=== PATIENT | male | born 1985 | race African-American/Black ===

== ENCOUNTER 2017-07-25 20:44 | Emergency (ER) | payer SELFPAY | END 2017-07-25 22:12 | disposition home or self-care (01) | LOC: ERS 20:44 | DX: A64 Unspecified sexually transmitted disease (principal); J45.909 Unspecified asthma, uncomplicated | CPT/HCPCS: 99281 ==

== ENCOUNTER 2018-09-11 07:05 | Emergency (ER) | payer BC, SELFPAY | END 2018-09-11 08:31 | disposition home or self-care (01) | LOC: ERS 07:05 | DX: J45.901 Unspecified asthma with (acute) exacerbation (principal); J06.9 Acute upper respiratory infection, unspecified | CPT/HCPCS: 87804; 94640 ==

== ENCOUNTER 2024-07-11 23:31 | Inpatient (IN) | payer OTHER ==
[2024-07-12] MEDS ORDERED: Acetaminophen 325 MG TAB PO PRN (01:56)
[2024-07-12] MEDS ORDERED: Acetaminophen 650 MG Suppository PR PRN (01:56)
[2024-07-12] MEDS ORDERED: Ondansetron PF 4 MG/2 ML Vial IVP PRN (01:56)
[2024-07-12] MEDS ORDERED: Calcium Carbonate 500 MG ChewTAB PO PRN (01:56)
[2024-07-12] MEDS ORDERED: Ondansetron ODT 4 MG TAB PO PRN (01:56)
[2024-07-12] MEDS: Carvedilol 25 MG TAB PO SCH ×2 (03:45→08:27)
[2024-07-12 03:58] LABS: #Basophils 0.06 10x3/uL (0.0-0.2); %Basophils 0.5 % (0.0-1.0); %Eosinophils 1.6 % (0.0-10.0); %Lymphocytes 29.3 % (21.0-51.0); %Monocytes 6.5 % (0.0-10.0); %Neutrophils 61.9 % (42.0-75.0); Hematocrit 40.9 % (42.0-52.0); Hemoglobin 12.9 g/dL (14.0-18.0); Mean Corpuscular HGB CONC 31.5 g/dL (32.0-36.0); Mean Corpuscular Volume 82.5 fL (78.0-98.0); Platelet Count 157 10x3/uL (130-400); RBC Distribution Width 14.2 % (11.5-14.5); Red Blood Cell (RBC) Count 4.96 mill/uL (4.70-6.10)
[2024-07-12 04:07] LABS: Amphetamine Not Detected (NotDetected); Barbiturates Screen Not Detected (NotDetected); Benzodiazepine Screen Not Detected (NotDetected); Cocaine Metabolite Screen Not Detected (NotDetected); Methadone Not Detected (NotDetected); Methamphetamine Not Detected (NotDetected); Opiate Screen Not Detected (NotDetected); Oxycodone Screen Not Detected (NotDetected); Phencyclidine (PCP) Not Detected (NotDetected); THC/Cannabinoid Screen Not Detected (NotDetected); Tricyclic Screen Not Detected (NotDetected)
[2024-07-12 04:30] LABS: Troponin I 0.062 ng/mL (< 0.028)
[2024-07-12 04:37] LABS: ALT (SGPT) 28 U/L (Less than 45); AST (SGOT) 27 U/L (11-34); Albumin 3.6 g/dL (3.1-4.5); Alkaline Phosphatase 61 U/L (40-110); Anion Gap 16 mmol/L (10-20); BUN (Urea Nitrogen) 13 mg/dL (8.9-20.6); Bilirubin, Total 0.4 mg/dL (0.3-1.2); Calc. Creatinine Clearance 110 mL/min (70-130); Calcium 8.5 mg/dL (7.8-10.44); Carbon Dioxide 22 mmol/L (22-29); Chloride 109 mmol/L (98-107); Estimated GFR 68; Globulin 2.9 g/dL (2.4-3.5); Glucose 108 mg/dL (70-105); Magnesium 2.1 mg/dL (1.6-2.6); Potassium 3.5 mmol/L (3.5-5.1); Protein, Total 6.5 g/dL (6.0-8.3); Sodium 143 mmol/L (136-145)
[2024-07-12] MEDS: Furosemide 40 MG (4 mL) VIAL SLOW IVP SCH (06:15)
[2024-07-12] MEDS: Famotidine 20 MG TAB PO SCH (08:28)
[2024-07-12] MEDS: Aspirin 81 mg Enteric Coated Tablet PO SCH (08:28)
[2024-07-12] MEDS: Famotidine/PF 20 mg/2ml Vial SLOW IVP SCH (08:28)
[2024-07-13 04:48] LABS: Anion Gap 15 mmol/L (10-20); BUN (Urea Nitrogen) 16 mg/dL (8.9-20.6); Calc. Creatinine Clearance 101 mL/min (70-130); Calcium 9.1 mg/dL (7.8-10.44); Carbon Dioxide 25 mmol/L (22-29); Cardiac Risk 5.8 (Less than 4.5); Chloride 107 mmol/L (98-107); Cholesterol 191 mg/dl (< 200 Desired); Estimated GFR 62; Glucose 112 mg/dL (70-105); HDL Cholesterol 33 mg/dL (>60 Neg Risk); LDL Cholesterol, Calculated 113 mg/dL; Magnesium 2.2 mg/dL (1.6-2.6); Potassium 3.8 mmol/L (3.5-5.1); Sodium 143 mmol/L (136-145); Triglycerides 227 mg/dL (Less than 150)
[2024-07-13 04:58] LABS: #Basophils 0.08 10x3/uL (0.0-0.2); %Basophils 0.7 % (0.0-1.0); %Eosinophils 2.8 % (0.0-10.0); %Lymphocytes 34.3 % (21.0-51.0); %Monocytes 7.5 % (0.0-10.0); %Neutrophils 54.5 % (42.0-75.0); Hematocrit 42.8 % (42.0-52.0); Hemoglobin 13.1 g/dL (14.0-18.0); Mean Corpuscular HGB CONC 30.6 g/dL (32.0-36.0); Mean Corpuscular Hemoglobin 25.9 pg (27.0-31.0); Mean Corpuscular Volume 84.6 fL (78.0-98.0); Platelet Count 160 10x3/uL (130-400); RBC Distribution Width 14.2 % (11.5-14.5); Red Blood Cell (RBC) Count 5.06 mill/uL (4.70-6.10)
[2024-07-13] MEDS: Amlodipine 5 MG TAB PO SCH (09:02)
[2024-07-13] MEDS: Empagliflozin 10 MG TAB PO SCH (09:03)
[2024-07-13] MEDS: Sacubitril 24MG/Valsartan 26 MG TAB PO SCH (09:53)
[2024-07-13] MEDS: Metolazone 5 MG TAB PO SCH (09:53)
[2024-07-13] MEDS: Furosemide 40 MG (4 mL) VIAL SLOW IVP SCH (09:53)
[2024-07-13] MEDS ORDERED: Communication Order-Pharmacy FS SCH (17:00)
[2024-07-14 04:57] LABS: #Basophils 0.08 10x3/uL (0.0-0.2); %Basophils 0.6 % (0.0-1.0); %Eosinophils 1.3 % (0.0-10.0); %Lymphocytes 25.2 % (21.0-51.0); %Monocytes 5.7 % (0.0-10.0); Hematocrit 45.2 % (42.0-52.0); Hemoglobin 14.4 g/dL (14.0-18.0); Mean Corpuscular HGB CONC 31.9 g/dL (32.0-36.0); Mean Corpuscular Hemoglobin 25.9 pg (27.0-31.0); Mean Corpuscular Volume 81.3 fL (78.0-98.0); Mean Platelet Volume 13.9 fL (7.4-10.4); Platelet Count 168 10x3/uL (130-400); Red Blood Cell (RBC) Count 5.56 mill/uL (4.70-6.10)
[2024-07-14 05:07] LABS: Anion Gap 15 mmol/L (10-20); BUN (Urea Nitrogen) 22 mg/dL (8.9-20.6); Calc. Creatinine Clearance 79 mL/min (70-130); Calcium 9.3 mg/dL (7.8-10.44); Carbon Dioxide 26 mmol/L (22-29); Chloride 102 mmol/L (98-107); Estimated GFR 47; Glucose 115 mg/dL (70-105); Potassium 3.3 mmol/L (3.5-5.1); Sodium 140 mmol/L (136-145)
[2024-07-14 07:45] VITALS: BMI 36.9
[2024-07-14] MEDS: Sodium Chloride 0.9% 1,000 ML IV SCH ×2 (08:11→13:15)
[2024-07-14] MEDS ORDERED: Iopamidol 370 76% 100 ML VIAL ONE (10:15)
[2024-07-14 11:10] LABS: Anion Gap 15 mmol/L (10-20); BUN (Urea Nitrogen) 20 mg/dL (8.9-20.6); Calc. Creatinine Clearance 87 mL/min (70-130); Calcium 9.2 mg/dL (7.8-10.44); Carbon Dioxide 27 mmol/L (22-29); Chloride 102 mmol/L (98-107); Estimated GFR 53; Glucose 109 mg/dL (70-105); Potassium 3.3 mmol/L (3.5-5.1); Sodium 141 mmol/L (136-145)
[2024-07-14] MEDS ORDERED: Midazolam HCl 2 mg/2 ml Vial ONE (11:49)
[2024-07-14] MEDS ORDERED: Atropine Sulfate 1 mg/10 ml Syringe ONE (11:49)
[2024-07-14] MEDS ORDERED: fentaNYL 50 mcg/mL 1 mL Vial ONE (11:49)
[2024-07-14] MEDS ORDERED: Adenosine 6 mg (2 mL) VIAL ONE (11:49)
[2024-07-14] MEDS ORDERED: Verapamil 5 MG/2 ML VIAL ONE (11:50)
[2024-07-14] MEDS ORDERED: Heparin 10,000 UNITS/ 10 ML VIAL ONE (11:50)
[2024-07-14] MEDS ORDERED: PHENYLEPHRINE-NS 100 MCG/ML 10 ML SYRINGE ONE (11:50)
[2024-07-14] MEDS ORDERED: Nitroglycerin 50 MG/250 ML BOT 250 ML ONE (11:50)
[2024-07-14] MEDS ORDERED: Sodium Chloride 0.9% 200 ML IV PRN (13:06)
[2024-07-14] MEDS ORDERED: Nitroglycerin 0.4 MG TAB (25 Tab Bottle) SL PRN (13:06)
[2024-07-14] MEDS ORDERED: Acetaminophen/Codeine 30-300mg Tablet PO PRN ×2 (13:06)
[2024-07-15 06:41] LABS: Hematocrit 45.5 % (42.0-52.0); Hemoglobin 14.2 g/dL (14.0-18.0); Mean Corpuscular HGB CONC 31.2 g/dL (32.0-36.0); Mean Corpuscular Hemoglobin 25.9 pg (27.0-31.0); Mean Corpuscular Volume 82.9 fL (78.0-98.0); Platelet Count 178 10x3/uL (130-400); Red Blood Cell (RBC) Count 5.49 mill/uL (4.70-6.10)
[2024-07-15 06:58] LABS: Anion Gap 16 mmol/L (10-20); BUN (Urea Nitrogen) 19 mg/dL (8.9-20.6); Calc. Creatinine Clearance 99 mL/min (70-130); Calcium 8.8 mg/dL (7.8-10.44); Carbon Dioxide 27 mmol/L (22-29); Chloride 100 mmol/L (98-107); Estimated GFR 61; Glucose 112 mg/dL (70-105); Potassium 3.5 mmol/L (3.5-5.1); Sodium 139 mmol/L (136-145)
[2024-07-15 09:38] LABS: Iron 58 ug/dL (65-175); Iron Binding Capacity, Total 248 mcg/dL (261-462)
[2024-07-15 10:02] LABS: Burr Cells SLIGHT = 2-5 cells HPF (0-1); Eosinophils 3 % (0-10); Lymphocytes 22 % (21-51); Monocytes 4 % (0-10); Neutrophil 70 % (42-75); Platelet Adequacy Comment Platelets Normal; Rouleaux Formation SLIGHT = 1-5 cells HPF (None Seen)
[2024-07-15 12:17] VITALS: TEMP 98.4
[2024-07-15 14:33] VITALS: BP 107/76
[2024-07-15] MEDS ORDERED: Sacubitril 24MG/Valsartan 26 MG TAB PO SCH (21:00)
== END 2024-07-15 14:50 | disposition home or self-care (01) | DRG 280 ==
LOC: PCU 07-12 01:37
PROVIDERS: ADMIT Student in an Organized Health Care Education/Training Program; ATTEND Family Medicine
PROC: 4A023N7 Measurement of Cardiac Sampling and Pressure, Left Heart, Percutaneous Approach (ICD-10-PCS; principal; 2024-07-14)
PROC: B2111ZZ Fluoroscopy of Multiple Coronary Arteries using Low Osmolar Contrast (ICD-10-PCS; 2024-07-14)
PROC: B2151ZZ Fluoroscopy of Left Heart using Low Osmolar Contrast (ICD-10-PCS; 2024-07-14)
DX: I11.0 Hypertensive heart disease with heart failure (principal); I50.23 Acute on chronic systolic (congestive) heart failure; I21.4 Non-ST elevation (NSTEMI) myocardial infarction; N17.9 Acute kidney failure, unspecified; I42.0 Dilated cardiomyopathy; J45.909 Unspecified asthma, uncomplicated; D72.829 Elevated white blood cell count, unspecified; Z98.890 Other specified postprocedural states
CPT/HCPCS: 36415; 80048; 80053; 80061; 80306; 83540; 83550; 83735; 83880; 84443; 84484; 85025; 93306; 93458; 93798; 97139; 99152; 99153; C1769; C1894; J0153; J0461; J1644; J1940; J2250; J3010; Q9967

== ENCOUNTER 2025-04-11 04:19 | Inpatient (IN) | payer OTHER ==
[2025-04-11 05:26] VITALS: BMI 38.0
[2025-04-11] MEDS ORDERED: Ondansetron PF 4 MG/2 ML Vial IVP PRN (06:10)
[2025-04-11] MEDS ORDERED: Acetaminophen 325 MG TAB PO PRN (06:10)
[2025-04-11] MEDS ORDERED: Albuterol 200 PUFF (6.7GM INHALER) INH PRN (07:27)
[2025-04-11] MEDS: Carvedilol 6.25 MG TAB PO SCH (08:41)
[2025-04-11] MEDS: Enoxaparin 40 MG (0.4 mL) SYRINGE SC SCH (08:42)
[2025-04-11] MEDS: Aspirin 81 mg Enteric Coated Tablet PO SCH (08:42)
[2025-04-11] MEDS: Sacubitril 24MG/Valsartan 26 MG TAB PO SCH (08:42)
[2025-04-11] MEDS: Furosemide 40 MG (4 mL) VIAL SLOW IVP SCH (14:10)
[2025-04-12 04:40] LABS: Hematocrit 43.6 % (42.0-52.0); Hemoglobin 13.7 g/dL (14.0-18.0); Mean Corpuscular Hemoglobin 26.0 pg (27.0-31.0); Mean Corpuscular Volume 82.7 fL (78.0-98.0); Platelet Count 169 10x3/uL (130-400); Red Blood Cell (RBC) Count 5.27 mill/uL (4.70-6.10); White Blood Cell (WBC) Count 11.02 10x3/uL (4.8-10.8)
[2025-04-12 04:50] LABS: Anion Gap 14 mmol/L (10-20); BUN (Urea Nitrogen) 18 mg/dL (8.9-20.6); Calc. Creatinine Clearance 104 mL/min (70-130); Calcium 8.8 mg/dL (7.8-10.44); Carbon Dioxide 25 mmol/L (22-29); Chloride 109 mmol/L (98-107); Glucose 141 mg/dL (70-105); Potassium 3.9 mmol/L (3.5-5.1); Sodium 144 mmol/L (136-145)
[2025-04-12 05:06] LABS: Platelet Adequacy Comment Platelets Normal; RBC Morphology Within Normal Limits; Smudge Cells 8.1 %
[2025-04-13 04:33] LABS: #Basophils 0.06 10x3/uL (0.0-0.2); #Eosinophils 0.20 10x3/uL (0.0-0.7); #Monocytes 0.63 10x3/uL (0.11-0.59); #Neutrophils 8.18 10x3/uL (1.40-6.50); %Basophils 0.5 % (0.0-1.0); %Eosinophils 1.6 % (0.0-10.0); %Lymphocytes 26.5 % (21.0-51.0); %Monocytes 5.1 % (0.0-10.0); %Neutrophils 66.0 % (42.0-75.0); Hematocrit 45.8 % (42.0-52.0); Hemoglobin 13.8 g/dL (14.0-18.0); Mean Corpuscular Hemoglobin 25.5 pg (27.0-31.0); Mean Corpuscular Volume 84.7 fL (78.0-98.0); Platelet Count 196 10x3/uL (130-400); Red Blood Cell (RBC) Count 5.41 mill/uL (4.70-6.10); White Blood Cell (WBC) Count 12.40 10x3/uL (4.8-10.8)
[2025-04-13 04:44] LABS: Anion Gap 16 mmol/L (10-20); BUN (Urea Nitrogen) 24 mg/dL (8.9-20.6); Calc. Creatinine Clearance 100 mL/min (70-130); Calcium 8.9 mg/dL (7.8-10.44); Carbon Dioxide 26 mmol/L (22-29); Chloride 107 mmol/L (98-107); Glucose 131 mg/dL (70-105); Magnesium 2.3 mg/dL (1.6-2.6); Potassium 3.7 mmol/L (3.5-5.1); Sodium 145 mmol/L (136-145)
[2025-04-13 17:27] VITALS: BP 105/75; TEMP 97.7
[2025-04-14] MEDS ORDERED: FLU (Fluarix Triv) 25-26 (6MOS UP)/PF 45 MCG/0.5 ML Syringe IM ONE (09:00)
== END 2025-04-13 18:20 | disposition home or self-care (01) | DRG 291 ==
LOC: PCU 04:20
PROVIDERS: ADMIT Internal Medicine; ATTEND Internal Medicine
PROC: 3E0234Z Introduction of Serum, Toxoid and Vaccine into Muscle, Percutaneous Approach (ICD-10-PCS; principal; 2025-04-11)
DX: I11.0 Hypertensive heart disease with heart failure (principal); I50.23 Acute on chronic systolic (congestive) heart failure; J45.909 Unspecified asthma, uncomplicated; Z98.890 Other specified postprocedural states; Z91.148 Patient's other noncompliance with medication regimen for other reason; I42.8 Other cardiomyopathies; Z79.52 Long term (current) use of systemic steroids; Z79.899 Other long term (current) drug therapy; Z79.82 Long term (current) use of aspirin; Z23 Encounter for immunization
CPT/HCPCS: 36415; 36416; 80048; 83735; 83880; 85025; 93306; 97139; J1650; J1940